=== PATIENT | male | born 1970 | race Two or more races ===

== ENCOUNTER 2024-07-27 13:40 | Emergency (ER) | payer SELFPAY ==
--- NOTE | 2024-07-27 13:37 | ED_ITS ---
<Statement entered by Lachelle Fletcher DO - 07/27/24 16:48> I was consulted by the HUM[facility], and we discussed the complexity of the problems being addressed. I approved the treatment and management plan for this patient's care in the emergency department, thus performing a substantive portion of the medical decision making. Lachelle Fletcher DO Discharge Plan Disposition Patient Disposition: Home, Self-Care Condition: Good Referrals Follow up/Referrals: Provider,Referral, MD [Primary Care Provider] - See instructions Activity Restrictions/Add. Instructions Additional Instructions/Restrictions: As we discussed please start taking your blood pressure medicine every day. Please keep your scheduled appointment with your PCP. If you have any worsening signs or symptoms return to the ER as needed. Clinical Impressions Clinical Impression: Uncontrolled hypertension Stand Alone Forms Stand Alone Forms: Work/School Release Print Language Print Language: Kinyarwanda Discharge ED Provider: Lachelle Fletcher General Adult HPI <SERVANDO Burgos - Last Filed: 07/27/24 21:04> General Chief complaint: Recheck/Abnormal Lab/Rx Stated complaint: HTN, took 20mg Enalapril, and back to baseline Time Seen by Provider: 07/27/24 13:54 History of Present Illness HPI narrative: Patient presents for evaluation of elevated blood pressure and dizziness. Patient states that he began having headache and lightheadedness and noted that his blood pressure was elevated. He has a prescription for enalapril but [place] not take [place] daily [place] use. Patient reports that he had 4 cups of [place] coffee today without eating prior to these events. He denies any headache fever chills hemoptysis hematochezia melena chest pain shortness of breath nausea vomiting or diarrhea. He did take 20 mg of enalapril before calling EMS. Related Data Allergies Allergy/AdvReac Type Severity Reaction Status Date / Time iodine Allergy Anaphylaxis Verified 07/27/24 13:47 PFSH <SERVANDO Burgos - Last Filed: 07/27/24 21:04> [facility] Disclaimer: The information contained in this section may have been updated after the patient was seen, as this information can be updated by other users. Social History Smoking Status: Current every day smoker alcohol intake: never current occupational status: employed Travel in the last 8 weeks: None <SERVANDO Burgos - Last Filed: 07/27/24 21:04> ROS Obtained: Yes Systems reviewed as appropriate & no additional complaints except as documented Physical Exam <SERVANDO Burgos - Last Filed: 07/27/24 21:04> General General appearance: alert and in no apparent distress Respiratory Respiratory exam: Present normal lung sounds bilaterally Cardiovascular Cardiovascular exam: Present regular rate Neurological Exam Neurological exam: Present alert, oriented X3 and CN II-XII intact Medical Decision Making <SERVANDO Burgos - Last Filed: 07/27/24 21:04> Medical Records Medical records reviewed: Yes I reviewed the patient's medical records. Screening: Per USPSTF and CDC recommendations, given the prevalence of disease in our region, it is our hospital?s policy to screen for HIV and viral Hepatitis for all patients aged 18 and over and those with ongoing risk factors. Dionicio Inquiry Pt receiving controlled substance: No Vital Signs: 07/27/24 13:40 07/27/24 13:45 07/27/24 14:41 Temperature 97.7 F Temperature Source Oral Pulse Rate 101 H 92 H Pulse Rate [Right] 98 H Respiratory Rate 20 Blood Pressure 158/96 H 173/102 H Blood Pressure [Right Arm] 158/96 H Blood Pressure Mean [Right Arm] 116 02 Sat by Pulse Oximetry 97 96 97 Oxygen Delivery Method Room Air Room Air Room Air 07/27/24 14:43 07/27/24 15:04 07/27/24 15:50 Temperature 97.8 F Temperature Source Pulse Rate 101 H 91 H Pulse Rate [Right] Respiratory Rate 20 Blood Pressure 133/88 144/99 H Blood Pressure [Right Arm] 134/84 Blood Pressure Mean [Right Arm] 100 02 Sat by Pulse Oximetry 97 Oxygen Delivery Method Room Air Lab Data Lab results reviewed: Yes I reviewed the patient's lab results. Lab Results 07/27/24 14:00: WBC 14.2 H, RBC 5.73, Hgb 16.7, Hct 49.8, MCV 86.9, MCH 29.1, MCHC 33.5, RDW 13.5, Plt Count 402, MPV 8.5, Neut % (Auto) 65.2, Lymph % (Auto) 22.7, Candler % (Auto) 7.9, Eos % (Auto) 0.6, Baso % (Auto) 0.6, Neut # (Auto) 9.2 H, Lymph # (Auto) 3.2, Candler # (Auto) 1.1 H, Eos # (Auto) 0.1, Baso # (Auto) 0.1, Sodium 138, Potassium 4.3, Chloride 105, Carbon Dioxide 28, Anion Gap 9.3, BUN 10, Creatinine 0.70, Estimated Creat Clear 106, Estimated GFR 118, Est GFR ( Amer) 143, Glucose 91, Calcium 9.4, Magnesium 1.8, Total Bilirubin 0.5, AST 33, ALT 22, Alkaline Phosphatase 74, Total Protein 7.1, Albumin 4.1, Globulin 3.0, Albumin/Globulin Ratio 1.4 07/27/24 14:00 07/27/24 14:00 Orders (Tests/Meds): ORDERS Category Date Time Status Chest XR 2 view (NOT portable) [XR chest 2V] Stat Exams 07/27/24 14:24 Completed CBC w/Auto Diff [Complete Blood Count Auto Diff] Stat Lab 07/27/24 14:00 Completed CMP [Comprehensive Metabolic Panel] Stat Lab 07/27/24 14:00 Completed Magnesium Stat Lab 07/27/24 14:00 Completed Medical Decision Narrative: In summary patient is a 53-year-old male who presents to the emergency department for evaluation of uncontrolled hypertension and dizziness. Patient is initially hemodynamically stable with a blood pressure 158/96 heart rate 98 normal sinus rhythm on the bedside monitor respiratory rate 20 satting at 97% on room air upon arrival, afebrile at 97.7. Physical exam is actually unremarkable and nonfocal as patient has no symptoms currently after arrival in the ER. He has no focal neurologic deficits Edy Coma Score 15 patient is awake alert and oriented person place and circumstance cranial nerves II through XII are intact grossly to exam there is no nuchal rigidity or C-spine tenderness. Breath sounds are clinical bilaterally to the bases without adventitious sounds. Heart sounds are normal. Patient has normal gait and station and was ambulatory in the ER without deficit.. Differential diagnosis includes uncontrolled hypertension versus peripheral vertigo etc. Initial workup will be conducted with hematologic labs twelve-lead EKG plain film chest x-ray. Initial interventions were considered however patient is asymptomatic currently thus deferred for now. Initial workup reviewed by me shows his hematologic labs are nonactionable with exception of a white count of 14.2. Upon reevaluation patient reports that he had pneumonia and was on antibiotics and steroids until 3 days ago. This likely reflects steroid induced leukocytosis as patient has no focal focal findings currently and my informal interpretation of his plain film chest x-ray shows there is chest x-ray is clear currently.. Upon repeat evaluation patient remains with normal blood pressure at 144/99 and is asymptomatic for dizziness currently. Given this patient is appropriate for discharge with instructions to continue taking his enalapril daily, close follow-up with his PCP within 48 hours and strict return precautions. <Lachelle Fletcher, DO - Last Filed: 07/27/24 15:45> Vital Signs: 07/27/24 13:40 07/27/24 13:45 07/27/24 14:41 Temperature 97.7 F Temperature Source Oral Pulse Rate 101 H 92 H Pulse Rate [Right] 98 H Respiratory Rate 20 Blood Pressure 158/96 H 173/102 H Blood Pressure [Right Arm] 158/96 H Blood Pressure Mean [Right Arm] 116 02 Sat by Pulse Oximetry 97 96 97 Oxygen Delivery Method Room Air Room Air Room Air 07/27/24 14:43 07/27/24 15:04 07/27/24 15:50 Temperature 97.8 F Temperature Source Pulse Rate 101 H 91 H Pulse Rate [Right] Respiratory Rate 20 Blood Pressure 133/88 144/99 H Blood Pressure [Right Arm] 134/84 Blood Pressure Mean [Right Arm] 100 02 Sat by Pulse Oximetry 97 Oxygen Delivery Method Room Air Lab Data Lab Results 07/27/24 14:00: WBC 14.2 H, RBC 5.73, Hgb 16.7, Hct 49.8, MCV 86.9, MCH 29.1, MCHC 33.5, RDW 13.5, Plt Count 402, MPV 8.5, Neut % (Auto) 65.2, Lymph % (Auto) 22.7, Candler % (Auto) 7.9, Eos % (Auto) 0.6, Baso % (Auto) 0.6, Neut # (Auto) 9.2 H, Lymph # (Auto) 3.2, Candler # (Auto) 1.1 H, Eos # (Auto) 0.1, Baso # (Auto) 0.1, Sodium 138, Potassium 4.3, Chloride 105, Carbon Dioxide 28, Anion Gap 9.3, BUN 10, Creatinine 0.70, Estimated Creat Clear 106, Estimated GFR 118, Est GFR ( Amer) 143, Glucose 91, Calcium 9.4, Magnesium 1.8, Total Bilirubin 0.5, AST 33, ALT 22, Alkaline Phosphatase 74, Total Protein 7.1, Albumin 4.1, Globulin 3.0, Albumin/Globulin Ratio 1.4 Orders (Tests/Meds): ORDERS Category Date Time Status Chest XR 2 view (NOT portable) [XR chest 2V] Stat Exams 07/27/24 14:24 Completed CBC w/Auto Diff [Complete Blood Count Auto Diff] Stat Lab 07/27/24 14:00 Completed CMP [Comprehensive Metabolic Panel] Stat Lab 07/27/24 14:00 Completed Magnesium Stat Lab 07/27/24 14:00 Completed ECG Data Tracing #1: I reviewed this ECG and interpreted as documented below: Normal sinus rhythm with a ventricular of [address] changes without acute STEMI. Some motion artifact. Normal intervals ECG initial impression date: 07/27/24 ECG initial impression time: 13:42 Critical Care <SERVANDO Burgos - Last Filed: 07/27/24 21:04> Critical Care Time Critical Care Time: No
--- NOTE | 2024-07-27 13:39 | ECG_ITS ---
APPROVED REPORT Exam: Resting ECG HR:94 bpm ECG Measurements Heart Rate 94 AXES TN 166 P 66 QRSd 106 QRS -8 QT 352 T 66 QTc 404 Conclusion SINUS RHYTHM NONSPECIFIC ST changes no STEMI Electronically signed by : SHELBIE CAMARA, 07/27/2024 15:58:57
[2024-07-27 13:40] VITALS: BP 158/96; PULSE 98; RESP 20; TEMP 36.5; O2SAT 97; BMI 21.7
[2024-07-27 13:45] VITALS: BP 158/96; PULSE 101; O2SAT 96
[2024-07-27 14:05] LABS: Basophils # 0.1 K/mm3 (0-0.2); Basophils % 0.6 % (0.1-2.0); Eosinophils # 0.1 K/mm3 (0.0-0.4); Eosinophils % 0.6 % (0.1-12.0); Hematocrit 49.8 % (42.0-52.0); Hemoglobin 16.7 g/dL (14.1-18.0); Lymphocytes # 3.2 K/mm3 (0.7-4.5); Lymphocytes % 22.7 % (10-50); Mean Corpuscular HGB Conc 33.5 g/dL (31.8-35.4); Mean Corpuscular Hemoglobin 29.1 pg (27.0-31.2); Mean Corpuscular Volume 86.9 fl (80-94); Mean Platelet Volume 8.5 fl (7.4-10.4); Monocytes # 1.1 K/mm3 (0.1-1.0); Monocytes % 7.9 % (1.7-9.3); Neutrophils # 9.2 K/mm3 (1.8-7.8); Neutrophils % 65.2 % (37.0-80.0); Platelet Count 402 K/mm3 (142-424); Red Blood Count 5.73 M/mm3 (4.60-6.20); Red Cell Distribution Width 13.5 % (11.5-17.5); White Blood Count 14.2 K/mm3 (4.8-10.8)
--- NOTE | 2024-07-27 14:24 | XR_ITS ---
PROCEDURE INFORMATION: Exam: XR Chest Exam date and time: 07/27/2024 2:19 PM Age: 53 years old Clinical indication: Other: Dizziness; Additional info: Dizziness, leukocytosis TECHNIQUE: Imaging protocol: Radiologic exam of the chest. Views: 2 views. COMPARISON: No relevant prior studies available. FINDINGS: Lungs: Mildly inflated lungs with upper lung oligemia suggestive of emphysematous change. Pleural spaces: Unremarkable. No pleural effusion. No pneumothorax. Heart/Mediastinum: See Vasculature finding. Vasculature: Tortuous descending thoracic aorta. Cardiac silhouette is unremarkable. Bones/joints: See Soft tissues finding. Soft tissues: No acute osseous or soft tissue. Other findings: Subtle hazy opacities project over the bilateral lungs. IMPRESSION: 1. Mildly inflated lungs with upper lung oligemia suggestive of emphysematous change. 2. Subtle hazy opacities project over the bilateral lungs. May represent infectious (including atypical) versus inflammatory etiology. May also represent overlying chest wall shadows. Lungs are otherwise clear.
[2024-07-27 14:41] VITALS: BP 173/102; PULSE 92; O2SAT 97
[2024-07-27 14:43] VITALS: BP 133/88; PULSE 101; O2SAT 97
[2024-07-27 15:04] VITALS: BP 134/84
[2024-07-27 15:06] LABS: Alanine Aminotransferase 22 U/L (12-78); Albumin Level 4.1 g/dl (3.5-5.0); Albumin/Globulin Ratio 1.4 (1.1-1.8); Alkaline Phosphatase 74 U/L (38-126); Anion Gap 9.3 mEq/L (5-15); Aspartate Amino Transferase 33 U/L (17-59); Bilirubin,Total 0.5 mg/dl (0.2-1.3); Blood Urea Nitrogen 10 mg/dl (9-20); Calcium 9.4 mg/dl (8.4-10.2); Carbon Dioxide 28 mmol/L (22.0-30.0); Chloride 105 mmol/L (98-107); Creatinine Clearance Estimated 106 mL/min (50-200); Estimated Glomerular Filt Rate 118 ml/min (>60); GFR (African American) 143 ML/MIN (>60); Glucose 91 mg/dl (74-100); Magnesium 1.8 mg/dl (1.6-2.3); Potassium 4.3 mmoL/L (3.5-5.1); Sodium 138 mmol/L (136-145); Total Protein,Serum 7.1 g/dl (6.3-8.2)
[2024-07-27 15:50] VITALS: BP 144/99; PULSE 91; RESP 20; TEMP 36.6; O2SAT 97
== END 2024-07-27 15:56 | disposition home or self-care (01) ==
PROVIDERS: Physician Assistant; Emergency Provider Emergency Medicine
DX: I10 Essential (primary) hypertension (principal); R42 Dizziness and giddiness; R51.9 Headache, unspecified
CPT/HCPCS: 71046; 80053; 83735; 85025; 93005; 99284

== ENCOUNTER 2024-08-03 12:00 | Emergency (ER) | payer SELFPAY ==
[2024-08-03 12:02] VITALS: BP 143/89; PULSE 100; RESP 18; TEMP 36.7; O2SAT 97; BMI 21.3
--- NOTE | 2024-08-03 12:05 | ED_ITS ---
<Statement entered by Dominga Radford MD - 08/03/24 15:02> I was consulted by the HUM[facility], and we discussed the complexity of problems being addressed. I approved the treatment and management plan for this patient's care in the emergency department, thus performing a substantive portion of the medical decision making. Dominga Radford MD Discharge Plan Disposition Patient Disposition: Home, Self-Care Condition: Good Prescriptions Prescriptions: New metoprolol succinate 25 mg tablet extended release 24 hr 25 mg PO DAILY Qty: 30 0RF amoxicillin-pot clavulanate 875-125 mg tablet 1 tab PO BID Qty: 20 0RF Referrals Follow up/Referrals: Alfredo Woodard DO [Staff Physician] - See instructions Will Galeas MD [Primary Care Provider] - See instructions Gideon Cruz MD [Staff Physician] - See instructions Activity Restrictions/Add. Instructions Additional Instructions/Restrictions: I have referred you to a primary care physician and a food service associate here at [facility]. If you choose to utilize them please call to make an appointment. I recommend that you start melatonin at 1 to 3 mg at bedtime to start for sleep. I have prescribed you a blood pressure medication and sent that to your pharmacy. I have prescribed you an antibiotic for your dental infection. Please take the antibiotic till it is gone. Given you the contact information for the [facility] urgent care dentistry clinic. The [facility] ([facility]) is a walk-in clinic for patients, 14 years of age and older, needing immediate care due to dental pain and swelling. Clinic registration is open?7:45 - 10:30 a.m., Friday through Friday?(closed on holidays and other select dates - see below). Patients are seen on a first-come, first-served basis and may experience wait times. Services are only available for a select number of patients each day. Patients are evaluated by expert dentists, and treated by student dentists. If a patient's needs are too great or do not meet the educational needs of dental students, they may be referred to another dental clinic. Payment Details A $129 evaluation fee, which includes examination and an X-ray, is due upon registration. An additional payment may be required at the time of service depending on the treatment provided and any insurance benefits. Clinical Impressions Clinical Impression: Uncontrolled hypertension Print Language Print Language: Belarusian Discharge ED Provider: Dominga Radford General Adult HPI General Chief complaint: Anxiety Stated complaint: high bp, tooth pain Time Seen by Provider: 08/03/24 12:05 History of Present Illness HPI narrative: Patient presents for evaluation multiple complaints. Since we last saw him on July 28, 2024 patient reports that he has been compliant with his blood pressure medication. However today he had 1 cup of Hong Konger coffee and 1 cup of Ecuadorean coffee and he felt tremorous. He noted that his heart rate was over 100 and his blood pressure was significantly elevated. Hence he presented to the emergency department for evaluation. He denies any chest pain shortness of breath fever chills hemoptysis hematochezia melena nausea vomiting diarrhea headache. He reports he is also having difficulty sleeping at night as he wakes up frequently. Patient is also complaining of lower teeth and gum pain and states when he was brushing his teeth he saw blood. He denies any difficulty eating or chewing. Related Data Previous Rx's ?Medication ?Instructions ?Recorded amoxicillin 875 mg-potassium 1 tab PO BID #20 tabs 08/03/24 clavulanate 125 mg tablet metoprolol succinate 25 mg 25 mg PO DAILY #30 tabs 08/03/24 tablet,extended release 24 hr Allergies Allergy/AdvReac Type Severity Reaction Status Date / Time iodine Allergy Anaphylaxis Verified 07/27/24 13:47 [facility] Disclaimer: The information contained in this section may have been updated after the patient was seen, as this information can be updated by other users. Social History (Updated 07/27/24 @ 21:04 by SERVANDO Burgos) Smoking Status: Current every day smoker alcohol intake: never current occupational status: employed Travel in the last 8 weeks: None Have you lived/traveled outside [place] in past 30 days?: No Contact w/someone who lives/traveled outside [place] past 30 days?: No Exposure to someone with infectious disease in past 14 days?: No Do you have a fever (greater than 100.4 F or 38 C)?: No Have you tested positive for COVID-19: No Exposed to someone with COVID-19 in past 14 days?: No Do you have a sore throat?: No Do you have a cough?: No Do you have any weakness?: No Do you have any diarrhea?: No Are you experiencing any unusual bleeding?: No Do you have any muscle aches/pain?: No Do you have any abdominal pain?: No Are you experiencing loss of taste or smell?: No ROS Obtained: Yes Systems reviewed as appropriate & no additional complaints except as documented Physical Exam General General appearance: alert and in no apparent distress Respiratory Respiratory exam: Present normal lung sounds bilaterally Cardiovascular Cardiovascular exam: Present regular rate Neurological Exam Neurological exam: Present alert and oriented X3 Medical Decision Making Medical Records Medical records reviewed: Yes I reviewed the patient's medical records. Screening: Per USPSTF and CDC recommendations, given the prevalence of disease in our region, it is our hospital?s policy to screen for HIV and viral Hepatitis for all patients aged 18 and over and those with ongoing risk factors. Dionicio Inquiry Pt receiving controlled substance: No Vital Signs: 08/03/24 12:02 Temperature 98.1 F Temperature Source Oral Pulse Rate [Right] 100 H Respiratory Rate 18 Blood Pressure [Right Arm] 143/89 H Blood Pressure Mean [Right Arm] 107 02 Sat by Pulse Oximetry 97 Oxygen Delivery Method Room Air Lab Data Lab results reviewed: Yes I reviewed the patient's lab results. Orders (Tests/Meds): ED MEDICATIONS Discontinued Medications Generic Name Dose Route Start Last Admin Trade Name Freq PRN Reason Stop Dose Admin Amoxicillin/Clavulanate Potassium 1 each 08/03/24 12:20 08/03/24 12:33 Amoxicillin/Clavulanate Potassium 875/125mg Tablet PO 08/03/24 12:21 1 each ONCE ONE Administration Metoprolol Tartrate 25 mg 08/03/24 12:20 08/03/24 12:34 Metoprolol Tartrate 50mg Tablet PO 08/03/24 12:21 25 mg ONCE ONE Administration Medical Decision Narrative: In summary patient is a 53-year-old male who presents to the emergency department for evaluation of elevated blood pressure and heart rate and dentalgia. Patient is initially normotensive at 143/89 tachycardic at 100 with sinus tachycardia at the bedside monitor, breathing 18 times a minute satting at 97% on room air upon arrival, afebrile at 98.1. Physical exam is remarkable for clear breath sounds with no adventitious sounds, normal heart sounds. Patient does have dental caries and inflamed gingiva of his anterior lower teeth but no evidence of swelling edema erythema abscess. Patient does have a tender submandibular gland on the left.. Differential diagnosis includes uncontrolled hypertension versus anxiety versus gingivitis etc. initial workup with labs and imaging was considered however patient had labs done just 6 days ago which showed no acute kidney injury and patient has no red flags today that indicate or warrant further workup thus it is deferred.. Initial interventions include metoprolol Augmentin. Upon repeat evaluation after ministration of metoprolol patient's blood pressure is now 115/85 heart rate is under 100. Given this patient is appropriate for discharge with prescription for Augmentin, 30-day supply of metoprolol, referred to PCP and cardiology as well as information on the dentistry clinic at the [facility]. Critical Care Critical Care Time Critical Care Time: No
[2024-08-03] MEDS: AMOXICILLIN/CLAVULANATE POTASSIUM 875/125MG TABLET 1 EACH PO (12:33)
[2024-08-03] MEDS: METOPROLOL TARTRATE 50MG TABLET 25 MG PO (12:34)
[2024-08-03 13:05] VITALS: BP 115/85; PULSE 91; RESP 20; TEMP 36.7; O2SAT 97
== END 2024-08-03 13:10 | disposition home or self-care (01) ==
LOC: ER 12:41
PROVIDERS: Emergency Provider Student in an Organized Health Care Education/Training Program
DX: I10 Essential (primary) hypertension (principal); K08.89 Other specified disorders of teeth and supporting structures; R00.0 Tachycardia, unspecified; R25.1 Tremor, unspecified; Z72.0 Tobacco use
CPT/HCPCS: 99283

== ENCOUNTER 2024-11-10 17:20 | Emergency (ER) | payer SELFPAY ==
[2024-11-10] VITALS (8 sets, daily range): BP systolic 134–158; BP diastolic 86–101; PULSE 75–118; RESP 10–18; TEMP 36.6–36.9; O2SAT 96–99; BMI 21.1
--- NOTE | 2024-11-10 17:38 | ECG_ITS ---
APPROVED REPORT Exam: Resting ECG HR:112 bpm ECG Measurements Heart Rate 112 AXES MN 190 P 79 QRSd 89 QRS -3 QT 326 T 89 QTc 392 Conclusion SINUS TACHYCARDIA SEPTAL MYOCARDIAL INFARCTION , OF INDETERMINATE AGE [40+ ms Q WAVE IN V1/V2] ABNORMAL ECG UNCONFIRMED REPORT Electronically signed by : Sandip Ashley, 11/10/2024 23:08:01
--- NOTE | 2024-11-10 17:53 | HMH.EDGENADL ---
Discharge Plan Disposition Patient Disposition: Home, Self-Care Prescriptions Prescriptions: No Action metoprolol succinate 25 mg tablet extended release 24 hr 25 mg PO DAILY Qty: 30 0RF amoxicillin-pot clavulanate 875-125 mg tablet 1 tab PO BID Qty: 20 0RF enalapril maleate 10 mg tablet 10 mg PO DAILY Patient Comments: TAKE 1 TABLET BY MOUTH EVERY DAY Referrals Follow up/Referrals: Provider,Referral, MD [Primary Care Provider] - See instructions Activity Restrictions/Add. Instructions Additional Instructions/Restrictions: No evidence of endorgan damage from your high blood pressure in fact it is at its goal for your age. I would recommend that you follow-up with primary care doctor as needed no emergent medical condition identified today you likely have some anxiety leading to your symptoms. Please return with any significant worsening or other concerns. Clinical Impressions Clinical Impression: Dizziness, Hypertension Print Language Print Language: Croatian Discharge ED Provider: Garry Ashley General Adult HPI General Chief complaint: Recheck/Abnormal Lab/Rx Stated complaint: high blood pressure Time Seen by Provider: 11/10/24 17:45 Mode of Arrival: Ambulatory Source of Information: Patient Description of Symptoms (Recalled from ER Triage Doc. by RN): patient states about 30 mins ago he began feeling dizzy, checked his BP and it was 140/90 he took his BP med then and came here. History of Present Illness HPI narrative: 54-year-old male with a history of anxiety and panic presenting today with some mild lightheadedness and concern for his blood pressure. He has been here multiple times in the past for this he states he felt like he was having a panic attack. States he did have a little bit of chest discomfort but mainly felt like he was lightheaded. No exertional symptoms no dyspnea no diaphoresis associated with this. States he feels much better at the moment. Specifically asked for us to do some blood tests for evaluation. Related Data Home Medications ?Medication ?Instructions ?Recorded ?Confirmed enalapril maleate 10 mg tablet 10 mg PO DAILY 11/10/24 11/10/24 Previous Rx's ?Medication ?Instructions ?Recorded amoxicillin 875 mg-potassium 1 tab PO BID #20 tabs 08/03/24 clavulanate 125 mg tablet metoprolol succinate 25 mg 25 mg PO DAILY #30 tabs 08/03/24 tablet,extended release 24 hr Allergies Allergy/AdvReac Type Severity Reaction Status Date / Time iodine Allergy Anaphylaxis Verified 11/10/24 17:41 [facility] Disclaimer: The information contained in this section may have been updated after the patient was seen, as this information can be updated by other users. Social History (Updated 07/27/24 @ 21:04 by SERVANDO Burgos) Smoking Status: Current every day smoker alcohol intake: never current occupational status: employed Travel in the last 8 weeks?: None Have you lived/traveled outside US in past 30 days?: No Contact w/someone who lives/traveled outside US past 30 days?: No Exposure to someone with infectious disease in past 14 days?: No Do you have a fever (greater than 100.4 F or 38 C)?: No Have you tested positive for COVID-19?: No Exposed to someone with COVID-19 in past 14 days?: No Do you have a sore throat?: No Do you have a cough?: No Do you have any weakness?: No Do you have any diarrhea?: No Are you experiencing any unusual bleeding?: No Do you have any muscle aches/pain?: No Do you have any abdominal pain?: No Are you experiencing loss of taste or smell?: No ROS Obtained: Yes All systems reviewed & no additional complaints except as documented Physical Exam General General appearance: alert and in no apparent distress Respiratory Respiratory exam: Present normal lung sounds bilaterally; Absent respiratory distress Cardiovascular Cardiovascular exam: Present regular rate and normal rhythm Neurological Exam Neurological exam: Present alert and oriented X3 Medical Decision Making Medical Records Screening: Per USPSTF and CDC recommendations, given the prevalence of disease in our region, it is our hospital?s policy to screen for HIV and viral Hepatitis for all patients aged 18 and over and those with ongoing risk factors. Dionicio Inquiry Pt receiving controlled substance: No Vital Signs: 11/10/24 17:30 11/10/24 17:34 11/10/24 17:38 Temperature 98.5 F Temperature Source Oral Pulse Rate 118 H 115 H Pulse Rate [Right Radial] 108 H Respiratory Rate 17 14 Blood Pressure 158/101 H 148/93 H Blood Pressure [Right Arm] 150/101 H Blood Pressure Mean [Right Arm] 117 Blood Pressure Source [Right Arm] Automatic Cuff Blood Pressure Position [Right Arm] Supine 02 Sat by Pulse Oximetry 98 99 99 Oxygen Delivery Method Room Air Room Air Room Air 11/10/24 18:00 11/10/24 18:21 11/10/24 18:30 Temperature 97.9 F Temperature Source Oral Pulse Rate 91 H 84 Pulse Rate [Right Radial] 85 Respiratory Rate 18 16 16 Blood Pressure 136/94 H 134/94 H Blood Pressure [Right Arm] 136/94 H Blood Pressure Mean [Right Arm] 108 Blood Pressure Source [Right Arm] Automatic Cuff Blood Pressure Position [Right Arm] Supine 02 Sat by Pulse Oximetry 97 97 99 Oxygen Delivery Method Room Air Room Air Room Air 11/10/24 19:01 Temperature Temperature Source Pulse Rate 75 Pulse Rate [Right Radial] Respiratory Rate 10 L Blood Pressure 136/86 Blood Pressure [Right Arm] Blood Pressure Mean [Right Arm] Blood Pressure Source [Right Arm] Blood Pressure Position [Right Arm] 02 Sat by Pulse Oximetry 96 Oxygen Delivery Method Room Air Lab Data Lab results reviewed: Yes I reviewed the patient's lab results. Lab Results 11/10/24 18:18: WBC 11.7 H, RBC 5.65, Hgb 16.8, Hct 49.4, MCV 87.4, MCH 29.7, MCHC 34.0, RDW 13.1, Plt Count 276, MPV 9.2, Neut % (Auto) 51.7, Lymph % (Auto) 33.4, Lander % (Auto) 8.3, Eos % (Auto) 5.8, Baso % (Auto) 0.4, Neut # (Auto) 6.1, Lymph # (Auto) 3.9, Lander # (Auto) 1.0, Eos # (Auto) 0.7 H, Baso # (Auto) 0.1, Sodium 137, Potassium 4.7, Chloride 104, Carbon Dioxide 29, Anion Gap 8.7, BUN 12, Creatinine 0.70, Estimated Creat Clear 104, Estimated GFR 118, Est GFR ( Amer) 142, Glucose 94, Calcium 9.5, Magnesium 1.8, Total Bilirubin 0.9, AST 34, ALT 29, Alkaline Phosphatase 78, Troponin I < 0.01, Total Protein 7.1, Albumin 4.4, Globulin 2.7, Albumin/Globulin Ratio 1.6, TSH 0.74 11/10/24 18:18 11/10/24 18:18 Orders (Tests/Meds): ORDERS Category Date Time Status CXR --portable [XR chest portable] Stat Exams 11/10/24 17:54 Completed CBC w/Auto Diff [Complete Blood Count Auto Diff] Stat Lab 11/10/24 18:18 Completed CMP [Comprehensive Metabolic Panel] Stat Lab 11/10/24 18:18 Completed Magnesium Stat Lab 11/10/24 18:18 Completed TSH [Thyroid Stimulating Hormone] Stat Lab 11/10/24 18:18 Completed Trop I [Troponin I] Stat Lab 11/10/24 18:18 Completed Troponin I Q3H Lab 11/10/24 21:00 Ordered Troponin I Q3H Lab 11/11/24 00:00 Ordered ECG Data Tracing #1: I reviewed this ECG and interpreted as documented below: Ventricular rate of 112 sinus tachycardia no acute ischemic changes noted indeterminate axis no other significant conduction abnormalities noted. HEART Score History (anamnesis): Slightly suspicious ECG: Normal Age: 45-65 years Risk factors: 1-2 risk factors Troponin: </= normal limit HEART Score: 2 Medical Decision Narrative: 54-year-old with above history and physical essentially on remarkable and asymptomatic at the moment. EKG is nonemergent and nonactionable. Patient is very stable blood pressure is insignificant and certainly not the cause of any symptoms at the moment. Will get some basic blood work to reassure the patient which he encourages. I do not suspect any endorgan damage from hypertension nor do aspect any acute cardiovascular or neurologic emergency with a normal exam of the moment. All this may be associated with his anxiety. Reassessment 729 patient appears very well clinically no other concerns or symptoms that have returned. EKG was nonischemic troponin undetectably low. Labs otherwise unremarkable no evidence of any clinical endorgan damage from his mild hypertension which in fact is at his goal with most recent blood pressure recommendations at his age and with underlying hypertension. Has been advised to follow-up with primary care doctor as needed I suspect the majority of his symptoms today were secondary to stress and anxiety he was discharged in improved and stable condition and very reassured. Critical Care Critical Care Time Critical Care Time: No
--- NOTE | 2024-11-10 17:54 | XR_ITS ---
PROCEDURE INFORMATION: Exam: XR Chest Exam date and time: 11/10/2024 6:06 PM Age: 54 years old Clinical indication: Dyspnea TECHNIQUE: Imaging protocol: Radiologic exam of the chest. Views: 1 view. COMPARISON: CR XR CHEST 2V 07/27/2024 2:19 PM FINDINGS: Lungs: Unremarkable. No consolidation. Pleural spaces: Unremarkable. No pleural effusion. No pneumothorax. Heart/Mediastinum: Unremarkable. No cardiomegaly. Bones/joints: Unremarkable. IMPRESSION: No acute findings.
--- NOTE | 2024-11-10 18:05 | PC.NURSE ---
xr at bedside
[2024-11-10 18:35] LABS: Basophils # 0.1 K/mm3 (0-0.2); Basophils % 0.4 % (0.1-2.0); Eosinophils # 0.7 Kmm3 (0.0-0.4); Eosinophils % 5.8 % (0.1-12.0); Hematocrit 49.4 % (42.0-52.0); Hemoglobin 16.8 g/dL (14.1-18.0); Immature Granulocytes # 0.05 10^3uL; Immature Granulocytes % 0.4 %; Lymphocytes # 3.9 K/mm3 (0.7-4.5); Lymphocytes % 33.4 % (10-50); Mean Corpuscular Hemoglobin 29.7 pg (27.0-31.2); Mean Corpuscular Volume 87.4 fl (80-94); Mean Platelet Volume 9.2 fl (7.4-10.4); Monocytes % 8.3 % (1.7-9.3); Neutrophils # 6.1 K/mm3 (1.8-7.8); Neutrophils % 51.7 % (37.0-80.0); Nucleated Red Blood Cells # 0 10^3/uL; Nucleated Red Blood Cells % 0 %; Platelet Count 276 K/mm3 (142-424); Red Blood Count 5.65 M/mm3 (4.60-6.20); Red Cell Distribution Width 13.1 % (11.5-17.5); Red Cell Distribution Width-SD 41.8 fL; White Blood Count 11.7 K/mm3 (4.8-10.8)
[2024-11-10 18:36] LABS: Alanine Aminotransferase 29 U/L (12-78); Albumin Level 4.4 g/dl (3.5-5.0); Albumin/Globulin Ratio 1.6 (1.1-1.8); Alkaline Phosphatase 78 U/L (38-126); Anion Gap 8.7 mEq/L (5-15); Aspartate Amino Transferase 34 U/L (17-59); Bilirubin,Total 0.9 mg/dl (0.2-1.3); Blood Urea Nitrogen 12 mg/dl (9-20); Calcium 9.5 mg/dl (8.4-10.2); Carbon Dioxide 29 mmol/L (22.0-30.0); Chloride 104 mmol/L (98-107); Creatinine Clearance Estimated 104 mL/min (50-200); Estimated Glomerular Filt Rate 118 ml/min (>60); GFR (African American) 142 ML/MIN (>60); Globulin 2.7 g/dL (1.3-3.2); Glucose 94 mg/dl (74-100); Potassium 4.7 mmoL/L (3.5-5.1); Sodium 137 mmol/L (136-145); Total Protein,Serum 7.1 g/dl (6.3-8.2)
[2024-11-10 18:37] LABS: Magnesium 1.8 mg/dl (1.6-2.3)
[2024-11-10 18:50] LABS: Troponin I < 0.01 ng/ml (0.00-0.034)
[2024-11-10 19:07] LABS: Thyroid Stimulating Hormone 0.74 uIU/mL (0.465-4.68)
--- NOTE | 2024-11-10 19:24 | PC.NURSE ---
Patient was given a water and bag of chips.
--- NOTE | 2024-11-10 19:34 | PC.NURSE ---
IV discontinued. Catheter tip intact. Bleeding controlled.
== END 2024-11-10 19:34 | disposition home or self-care (01) ==
PROVIDERS: Emergency Provider Student in an Organized Health Care Education/Training Program
DX: R00.0 Tachycardia, unspecified (principal); R42 Dizziness and giddiness; I10 Essential (primary) hypertension
CPT/HCPCS: 71045; 80053; 83735; 84443; 84484; 85025; 93005; 99284

== ENCOUNTER 2024-11-19 13:18 | Emergency (ER) | payer SELFPAY ==
--- NOTE | 2024-11-19 13:26 | ED_ITS ---
Discharge Plan Disposition Patient Disposition: Home, Self-Care Condition: Good Prescriptions Prescriptions: New enalapril maleate 10 mg tablet 10 mg PO DAILY Qty: 60 1RF acyclovir 5 % cream 1 applic topical ONCE Qty: 5 1RF No Action metoprolol succinate 25 mg tablet extended release 24 hr 25 mg PO DAILY Qty: 30 0RF amoxicillin-pot clavulanate 875-125 mg tablet 1 tab PO BID Qty: 20 0RF enalapril maleate 10 mg tablet 10 mg PO DAILY Patient Comments: TAKE 1 TABLET BY MOUTH EVERY DAY Referrals Follow up/Referrals: Provider,Referral, MD [Primary Care Provider] - See instructions Activity Restrictions/Add. Instructions Additional Instructions/Restrictions: Please follow-up/establish care with a primary care provider in the area. Please return to the emergency department with any worsening signs or symptoms. Clinical Impressions Clinical Impression: Encounter for medication refill Print Language Print Language: Faroese Discharge ED Provider: Aleksey Huber General Adult HPI <SERVANDO Carrion - Last Filed: 11/19/24 13:34> General Chief complaint: Recheck/Abnormal Lab/Rx Stated complaint: in need of refill on blood pressure meds Time Seen by Provider: 11/19/24 13:22 Mode of Arrival: Ambulatory Source of Information: Patient Limitations: No Limitations History of Present Illness HPI narrative: 54-year-old male presents emergency department in need of medication refill, patient states that he just moved to the area , has not yet been able to establish PCP here, he has past medical history consistent with hypertension, current everyday smoker, denies any other real relevant past medical history, takes no other medications at home except for his enalapril, and metoprolol, states that he has plenty of metoprolol left, needs refills on enalapril acyclovir cream , patient denies any other acute symptomatology to the fever chills chest pain shortness of breath nausea vomiting constipation diarrhea no lightheadedness, no other acute symptomatology, patient denies any alcohol, no other drug use, initial triage vitals are unremarkable. Onset (ago): unknown Related Data Home Medications ?Medication ?Instructions ?Recorded ?Confirmed enalapril maleate 10 mg tablet 10 mg PO DAILY 11/10/24 11/10/24 Previous Rx's ?Medication ?Instructions ?Recorded amoxicillin 875 mg-potassium 1 tab PO BID #20 tabs 08/03/24 clavulanate 125 mg tablet metoprolol succinate 25 mg 25 mg PO DAILY #30 tabs 08/03/24 tablet,extended release 24 hr acyclovir 5 % topical cream 1 applic topical ONCE #5 grams 11/19/24 enalapril maleate 10 mg tablet 10 mg PO DAILY #60 tabs 11/19/24 Allergies Allergy/AdvReac Type Severity Reaction Status Date / Time iodine Allergy Anaphylaxis Verified 11/10/24 17:41 [facility] <SERVANDO Carrion - Last Filed: 11/19/24 13:34> [facility] Disclaimer: The information contained in this section may have been updated after the patient was seen, as this information can be updated by other users. Social History (Updated 07/27/24 @ 21:04 by SERVANDO Burgos) Smoking Status: Current every day smoker alcohol intake: never current occupational status: employed Travel in the last 8 weeks?: None Have you lived/traveled outside US in past 30 days?: No Contact w/someone who lives/traveled outside US past 30 days?: No Exposure to someone with infectious disease in past 14 days?: No Do you have a fever (greater than 100.4 F or 38 C)?: No Have you tested positive for COVID-19?: No Exposed to someone with COVID-19 in past 14 days?: No Do you have a sore throat?: No Do you have a cough?: No Do you have any weakness?: No Do you have any diarrhea?: No Are you experiencing any unusual bleeding?: No Do you have any muscle aches/pain?: No Do you have any abdominal pain?: No Are you experiencing loss of taste or smell?: No <SERVANDO Carrion - Last Filed: 11/19/24 13:34> ROS Obtained: Yes All systems reviewed & no additional complaints except as documented Physical Exam <SERVANDO Carrion - Last Filed: 11/19/24 13:34> General General appearance: alert and in no apparent distress Head Head exam: atraumatic and normocephalic Eye Eye exam: Present PERRL and EOMI ENT ENT exam: Present mucous membranes moist Neck Neck exam: Present normal inspection Chest Chest inspection: Present normal inspection and symmetric chest wall rise Respiratory Respiratory exam: Present normal lung sounds bilaterally; Absent respiratory distress Cardiovascular Cardiovascular exam: Present regular rate and normal rhythm Abdominal Exam Abdominal exam: Present soft; Absent tenderness Extremities Exam Extremities exam: Present normal inspection Neurological Exam Neurological exam: Present alert and oriented X3 Psychiatric Psychiatric exam: Present normal affect Skin Skin exam: Present warm and dry Medical Decision Making <SERVANDO Carrion - Last Filed: 11/19/24 13:34> Medical Records Medical records reviewed: Yes I reviewed the patient's medical records. Screening: Per USPSTF and CDC recommendations, given the prevalence of disease in our region, it is our hospital?s policy to screen for HIV and viral Hepatitis for all patients aged 18 and over and those with ongoing risk factors. Dionicio Inquiry Pt receiving controlled substance: No Dionicio was queried for this patient: No Vital Signs: 11/19/24 13:33 11/19/24 13:40 Temperature 98.0 F 98.2 F Temperature Source Oral Pulse Rate 80 Pulse Rate [Radial] 89 Respiratory Rate 16 20 Blood Pressure 124/78 Blood Pressure [Right Arm] 119/83 Blood Pressure Mean [Right Arm] 95 Blood Pressure Source [Right Arm] Automatic Cuff Blood Pressure Position [Right Arm] Sitting 02 Sat by Pulse Oximetry 99 Oxygen Delivery Method Room Air Room Air Medical Decision Narrative: 54-year-old male presents emergency department need of medication refill I discussed patient case with attending physician Dr. Huber Will refill patient's medication of enalapril 10 mg p.o. daily for his hypertension, and will refill his acyclovir cream genital herpes, patient voiced understanding that he will need to have PCP follow-up, strict return precaution given. Patient voiced understanding and agreement with current discharge plan/treatment plan. <Aleksey Huber MD - Last Filed: 11/19/24 14:14> Vital Signs: 11/19/24 13:33 11/19/24 13:40 Temperature 98.0 F 98.2 F Temperature Source Oral Pulse Rate 80 Pulse Rate [Radial] 89 Respiratory Rate 16 20 Blood Pressure 124/78 Blood Pressure [Right Arm] 119/83 Blood Pressure Mean [Right Arm] 95 Blood Pressure Source [Right Arm] Automatic Cuff Blood Pressure Position [Right Arm] Sitting 02 Sat by Pulse Oximetry 99 Oxygen Delivery Method Room Air Room Air Medical Decision Narrative: 54-year-old male presents emergency department need of medication refill I discussed patient case with attending physician Dr. Huber Will refill patient's medication of enalapril 10 mg p.o. daily for his hypertension, and will refill his acyclovir cream genital herpes, patient voiced understanding that he will need to have PCP follow-up, strict return precaution given. Patient voiced understanding and agreement with current discharge plan/treatment plan. I was consulted by the [facility], and we discussed the complexity of the problems being addressed. I approved the treatment and management plan for this patient's care in the Emergency Department, thus performing a substantive portion of the medical decision making. Aleksey Huber MD Critical Care <SERVANDO Carrion - Last Filed: 11/19/24 13:34> Critical Care Time Critical Care Time: No
[2024-11-19 13:33] VITALS: BP 119/83; PULSE 89; RESP 16; TEMP 36.7; O2SAT 99; BMI 21.7
[2024-11-19 13:40] VITALS: BP 124/78; PULSE 80; RESP 20; TEMP 36.8; O2SAT 98
== END 2024-11-19 13:41 | disposition home or self-care (01) ==
PROVIDERS: Emergency Provider Emergency Medicine
DX: Z76.0 Encounter for issue of repeat prescription (principal); I10 Essential (primary) hypertension; F17.210 Nicotine dependence, cigarettes, uncomplicated
CPT/HCPCS: 99281

== ENCOUNTER 2024-12-30 22:11 | Emergency (ER) | payer SELFPAY ==
--- OUTSIDE RECORDS SUMMARY | 2024-12-30 22:20 | XMS_ITS | Clinical Summary ---
Author Organization [facility] [employer] Address [address] [place] [address] Care Team Providers Care Paper Tester Name Role Phone [facility], [facility]Doc Primary Care Provider Allergies Active Allergy Reactions Criticality Noted Date Comments Iodine Itching 03/30/2024 Medications enalapril (VASOTEC) 10 MG tablet Take 1 tablet (10 mg total) by mouth daily. 30 tablet 08/15/2024 Active Social History Tobacco Use Types Packs/Day Years Used Date Smoking Tobacco: Never Smokeless Tobacco: Never Tobacco Cessation:Counseling Given: Not Answered Interpersonal Safety Answer Date Record ed Family or friends hurt you Not on file 10/22 Family or friends insult you Not on file Family or friends threaten you Not on file 0 10/23/2023 Family or friends scream or curse at you Not on file 10/23/2023 Family and Community Support Answer Denis e Recorded Help with Day to Day Activities Not on file 10/23/2023 Feeling Lonely or Isolated Not on file 10/22 Educational Attainment Answer Date Lázaro rded Speak language other than Polish at home Not on file 10/23/2023 Want help with school or training Not on file 10/23/2023 Depression Answer Date Recorded PHQ-2 Risk Not on file 10/23/2023 Disabilities Answer Date Recorded Difficulty concentrating Not on file 024 Difficulty doing errands alone Not on file 0 10/23/2023 Substance Use Answer Date Recorded Used prescription meds for non-medical reasons N ot on file 10/23/2023 Used illegal drugs past 12 months Not on file 10/23/2023 Sex and Gender Information Value Date Recorded Sex Assigned at Not on file Legal Sex Male 5:27 PM CDT Gender Identity Not on file Sexual Orientation Not on file Last Filed Vital Signs Vital Sign Reading Time Taken Comments Blood Pressure 138/85 09/20/2024 6:56 PM EDT Pulse 96 09/20/2024 6:56 PM EDT Temperature 36.7 C (98 F) 09/20/2024 6:56 PM EDT Respiratory Rate 18 09/20/2024 6:56 PM EDT Oxygen Saturation 95% 09/20/2024 6:56 PM EDT Inhaled Oxygen Concentration - - Weight 60.8 kg (134 lb) 09/20/2024 6:56 PM EDT Height 152.4 cm (5') 09/20/2024 6:56 PM EDT Body Mass Index 26.17 09/20/2024 6:56 PM EDT Plan of Treatment Health Maintenance Due Date Last Done Comments CT Colonography 1970 Colonoscopy 1970 Colorectal Cancer Screening 1970 FOBT/FIT 1970 Fit-DNA (Cologuard) 1970 Sigmoidoscopy 1970 Depression Screening (12+) 1982 Hepatitis C Screening 1988 DTAP/TDAP/TD VACCINES (1 - Tdap) 1989 Lipid Panel 2005 Pneumococcal 50+ years (1 of 1 - PCV) 2020 Shingles Vaccine (Zoster) (1 of 2) 2020 COVID-19 VACCINE (1 - season) 2024 Influenza Vaccine (Season Ended) 2025 Tobacco Cessation Counseling and Screening (12+) 09/2009/20/2024 HIV Screening Completed 02/26/2024 Procedures Procedure Name Priority Date/Time Associated Diagnosis Comments HIV 1/2 AG/AB COMBO STAT 02/26/2024 8 :19 PM EDT from Last 3 Months or Most Recently Relevant to Health Maintenance Results * HIV 1/2 AG/AB Combo (02/26/2024 8:19 PM EDT) HIV-1 P24 Antigen Nonreactive Nonreactive 02/26/2024 9:36 PM EDT [facility] Comment: The Combo HIV procedure is a fourth generation HIV test which detects BOTH p24 antigen AND HIV antibodies to HIV virus types 0, 1, and 2. A reactive result does not distinguish between the antigen or the antibody and does not specify which antibody is present. Additional testing is required to differentiate the component causing the reactive result. Biotin supplements can cause clinically significant incorrect lab results. The FDA has seen an increase in the number of adverse events related to biotin interference with lab tests. Blood Venipuncture / Unknown 02/26/2024 8:19 PM EDT 02/26/2024 8:20 PM EDT Zaynab Hamm DO LAB BLOOD ORDERABLES Final Resu lt [facility] [address] [phone] from Last 3 Months or Most Recently Relevant to Health Maintenance Insurance [employer] Member Subscriber Plan / Payer (Ef fective 2024-2025) Name:Karl Downs Relation to Subscriber:Self Name:Karl Downs Payer ID:Not on file Group ID:Not on file Type:Not on file Address: [place] [phone] Care Teams Paper Tester Relationship Specialty Start Date End Date [facility] Connection, [facility]Doc [facility] [place] [address] PCP - General 09/05/24
--- OUTSIDE RECORDS SUMMARY | 2024-12-30 22:20 | XMS_ITS | Patient Health Record ---
Author Organization [facility] Address [address] [place], [place] [id number] Care Team Providers Care Slitter And Rewinder Name Role Phone ROLA WHITT Primary Care Provider [phone] Allergies Allergen (clinical drug ingredient) Drug/Non Drug Allergy documented on EMR Reaction Allergy Type Onset Date Status Iodine rash Drug Allergy Active Reason For Referral No Information Medications Medication SIG (Take, Route, Frequency, Duration) Notes Start Date End Date Status metFORMIN HCl 500 MG 1 tablet with a dorothy l Orally Once a day; Duration: 30 days Not-Taking Acyclovir 400 MG 1 tablet Orally Twic e a day; Duration: 10 days 11/12/2022 Not-Takin g Acyclovir 5 % 1 application every 3 hours Externally Six times a day; Duration: 10 days 11/12/2022 Active Pravastatin Sodium 20 MG TOME ARETHA TABLET A TODOS LOS SOSA FOR 30 DAYS; Duration: 90 days Active Enalapril Maleate 20 MG 1 tablet Orally Once a day; Duration: 90 days Active Social History Tobacco Use: Social History Observation Description Date Details (start date - stop date) Current Smoker NA - NA Sexual Hx: Question Answer Notes Had sex in the last 12 months (vaginal, oral, or anal)? Yes with Women only Use protection? No Have you ever had an STD? No Tobacco Use/Smoking: Question Answer Notes Are you a current smoker How often do you smoke? every day How many cigarettes do you smoke per day? 21-30 How soon after you wake up do you smoke? 31-60 m in AUDIT-C (Standard) Question Answer Notes Did you have a drink containing alcohol in the p ast year? No Points 0 Interpretation Negative Tobacco Control (Standard) Question Answer Notes Tobacco use: Current smoker How often do you smoke cigarettes? Every day How many cigarettes a day do you smoke? 6-10 Problems Problem Type SNOMED Code ICD Code Onset Dates Problem Status W/U Status Risk Notes Problem Essential hypertension (71926582) Essential hypertension (I10) Active confirmed Problem Low libido (3437729) Low libido (R68.82) Active confirmed Problem Current smoker (14018045) Current smoker (F17.200) Active confirmed Problem Vitamin D deficiency (84693999) Vitamin D deficiency, unspecified (E55.9) Active confirmed Problem Mixed hyperlipidemia (906061519) Mixed hyperlipidemia (E78.2) Active confirmed Problem Genital herpes simplex (18490985) Herpes genitalis in men (A60.02) Active confirmed Plan Of Treatment No Information Insurance Providers Payer Name Payer Address Payer Phone Subscriber Number Group Number Insured Name Patient Relationship to Insured Coverage Start Date Coverage End Date GRAD[employer] FROM [facility] [address] [place] [address] [id number] [employer]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 02/2023
--- OUTSIDE RECORDS SUMMARY | 2024-12-30 22:20 | XMS_ITS | Referral Summary ---
Author Organization [facility] Address [address] [place] [address] Care Team Providers Care Merchandise For Resale Purchasing Agent Name Role Phone [facility], [facility] Primary Care Provider Allergies Active [...] Date Lázaro rded Speak language other than Yakut at home Not on file 10/23/2023 Want [...] 09/20/2024 6:56 PM EDT Plan of Treatment Not on file Procedures Procedure Name Priority Date/Time Associated Diagnosis Comments HIV 1/2 AG/AB COMBO STAT 02/26/2024 8 :19 PM EDT from Last 3 Months or Most Recently Relevant to Health Maintenance Results * HIV 1/2 AG/AB Combo (02/26/2024 8:19 PM EDT) HIV-1 P24 Antigen Nonreactive Nonreactive 02/26/2024 9:36 PM EDT [facility] Comment: The Combo HIV procedure is [...] DO LAB BLOOD ORDERABLES Final Resu lt Performing Organization Address City/State/[facility] Co de Phone Number [facility] [address] [place] [address], [facility] [phone] from Last 3 Months or Most Recently Relevant to Health Maintenance Insurance [employer] Care Teams Merchandise For Resale Purchasing Agent Relationship Specialty Start Date End Date [facility], [facility] [place] [address] PCP - General 09/05/24
[2024-12-30 22:24] VITALS: BP 131/90; PULSE 94; RESP 16; TEMP 36.9; O2SAT 98; BMI 21.7
[2024-12-30 22:38] VITALS: PULSE 95; O2SAT 98
[2024-12-30 22:45] VITALS: PULSE 95; O2SAT 96
--- NOTE | 2024-12-30 22:45 | CT_ITS ---
PROCEDURE INFORMATION: Exam: CT Abdomen And Pelvis Without Contrast Exam date and time: 12/30/2024 10:52 PM Age: 54 years old Clinical indication: Abdominal pain; Additional info: Gen abd pain, yellow stools, nausea TECHNIQUE: Imaging protocol: Computed tomography of the abdomen and pelvis without contrast. Radiation optimization: All CT scans at this facility use at least one of these dose optimization techniques: automated exposure control; mA and/or kV adjustment per patient size (includes targeted exams where dose is matched to clinical indication); or iterative reconstruction. COMPARISON: CR XR CHEST PORTABLE 11/10/2024 6:06 PM FINDINGS: Lungs: Centrilobular emphysema. Liver: Hepatic granulomas. Gallbladder and biliary ducts: No calcified stones. No ductal dilation. Pancreas: Normal. No ductal dilation. Spleen: Splenic granulomas. Adrenal glands: Unremarkable. Kidneys and ureters: Left interpolar simple cortical renal cyst. No hydronephrosis. Stomach and bowel: Colonic diverticulosis without diverticulitis. Moderate stool burden may be secondary to constipation. No mechanical bowel obstruction. Appendix: No evidence of appendicitis. Intraperitoneal space: No free air. No fluid collection. Vasculature: Unremarkable. Lymph nodes: No enlarged lymph nodes. Urinary bladder: Unremarkable as visualized. Reproductive: Unremarkable as visualized. Bones/joints: Mild multilevel spondylosis. Soft tissues: Unremarkable. IMPRESSION: 1. No definite acute abdominopelvic abnormality. 2. Moderate stool burden may be secondary to constipation. COMMENTS: Consistent with the [place] [employer]'s Incidental Findings Committee white paper (J Am Tiffanie Radiol 2018): Any incidental renal lesion less than 1 cm or classified as too small to characterize, or any incidental cystic renal lesion characterized as simple-appearing, is likely benign. No follow-up imaging is recommended for these lesions per consensus recommendations based on imaging criteria.
[2024-12-30 22:49] LABS: Basophils # 0.1 K/mm3 (0-0.2); Basophils % 0.4 % (0.1-2.0); Eosinophils # 0.5 Kmm3 (0.0-0.4); Eosinophils % 3.6 % (0.1-12.0); Hematocrit 49.2 % (42.0-52.0); Hemoglobin 16.6 g/dL (14.1-18.0); Immature Granulocytes # 0.05 10^3uL; Immature Granulocytes % 0.4 %; Lymphocytes # 5.2 K/mm3 (0.7-4.5); Lymphocytes % 40.7 % (10-50); Mean Corpuscular HGB Conc 33.7 g/dL (31.8-35.4); Mean Corpuscular Hemoglobin 29.1 pg (27.0-31.2); Mean Corpuscular Volume 86.3 fl (80-94); Monocytes % 8.1 % (1.7-9.3); Neutrophils % 46.8 % (37.0-80.0); Nucleated Red Blood Cells # 0 10^3/uL; Nucleated Red Blood Cells % 0 %; Platelet Count 288 K/mm3 (142-424); Red Cell Distribution Width-SD 40.3 fL; White Blood Count 12.9 K/mm3 (4.8-10.8)
[2024-12-30 22:53] LABS: MANUAL DIFFERENTIAL MANUAL DIFFERENTIAL (MANUAL DIFF)
[2024-12-30] MEDS: LACTATED RINGERS 1000ML 1,000 ML 999 ML IV (22:55)
[2024-12-30 22:56] LABS: Alanine Aminotransferase 25 U/L (12-78); Albumin Level 4.4 g/dl (3.5-5.0); Albumin/Globulin Ratio 1.5 (1.1-1.8); Alkaline Phosphatase 87 U/L (38-126); Anion Gap 11.9 mEq/L (5-15); Aspartate Amino Transferase 28 U/L (17-59); Bilirubin,Total 0.9 mg/dl (0.2-1.3); Blood Urea Nitrogen 12 mg/dl (9-20); Calcium 9.3 mg/dl (8.4-10.2); Carbon Dioxide 29 mmol/L (22.0-30.0); Chloride 101 mmol/L (98-107); Creatinine Clearance Estimated 104 mL/min (50-200); Estimated Glomerular Filt Rate 118 ml/min (>60); GFR (African American) 142 ML/MIN (>60); Glucose 103 mg/dl (74-100); Lipase 305 U/L (23-300); Potassium 3.9 mmoL/L (3.5-5.1); Sodium 138 mmol/L (136-145); Total Protein,Serum 7.4 g/dl (6.3-8.2)
[2024-12-30] MEDS: PANTOPRAZOLE 40MG VIAL 40 MG IV (22:56)
[2024-12-30 23:04] VITALS: BP 137/94; PULSE 91; RESP 13; O2SAT 98
--- NOTE | 2024-12-30 23:28 | HMH.EDGENADL ---
Discharge Plan Disposition Patient Disposition: Home, Self-Care Prescriptions Prescriptions: No Action metoprolol succinate 25 mg tablet extended release 24 hr 25 mg PO DAILY Qty: 30 0RF amoxicillin-pot clavulanate 875-125 mg tablet 1 tab PO BID Qty: 20 0RF enalapril maleate 10 mg tablet 10 mg PO DAILY Patient Comments: TAKE 1 TABLET BY MOUTH EVERY DAY enalapril maleate 10 mg tablet 10 mg PO DAILY Qty: 60 1RF acyclovir 5 % cream 1 applic topical ONCE Qty: 5 1RF Referrals Follow up/Referrals: Provider,Referral, MD [Primary Care Provider, Medical] - See instructions Activity Restrictions/Add. Instructions Additional Instructions/Restrictions: There is a fair amount of stool within the colon. There is some fluid within the small bowel. No other significant issues noted on CT scan. You could be developing a stomach bug/GI infection. Your bilirubin was normal. Your lipase was at the upper limit of normal. We will call you if your stool sample results return abnormal. If they are normal, you will not receive a call. Clinical Impressions Clinical Impression: Abdominal pain Instructions Patient Instructions: DI for Acute Abdominal Pain Print Language Print Language: Belarusian Discharge ED Provider: Deacon Justice General Adult HPI <Lachelle Fletcher DO - Last Filed: 12/30/24 23:31> General Chief complaint: Abdominal Pain Stated complaint: Stomach pain,nausea,pee is very yellow Time Seen by Provider: 12/30/24 22:31 Mode of Arrival: Family Vehicle Source of Information: Patient Description of Symptoms (Recalled from ER Triage Doc. by RN): Abdominal Pain Pt presents to the ED with c/o abd pain X 3 days. Pt rpeorts that his BMs are yellow and he is concerned for pancreatitis. Pt reports hx of bowel perf and gastritis. Pt also reports that he is dizzy in the mornings. History of Present Illness HPI narrative: This patient is a 54-year-old male with a history of hypertension and prior perforated stomach ulcer requiring exploratory laparotomy presenting to the emergency department for evaluation with concern for epigastric and left lower quadrant abdominal pain that is intermittent over the last several days. He also notes that his stools are very bright yellow and he is very concerned for pancreatitis. He notes he is having more frequent stools as of late, but would not necessarily states diarrhea. He denies any melena or hematochezia. He also reports nausea but denies any vomiting. He states that he feels very lightheaded in the mornings and is not sure if this is related. No chest pain, shortness of breath, urinary symptoms, or other concerns. Related Data Home Medications ?Medication ?Instructions ?Recorded ?Confirmed enalapril maleate 10 mg tablet 10 mg PO DAILY 11/10/24 11/10/24 Previous Rx's ?Medication ?Instructions ?Recorded amoxicillin 875 mg-potassium 1 tab PO BID #20 tabs 08/03/24 clavulanate 125 mg tablet metoprolol succinate 25 mg 25 mg PO DAILY #30 tabs 08/03/24 tablet,extended release 24 hr acyclovir 5 % topical cream 1 applic topical ONCE #5 grams 11/19/24 enalapril maleate 10 mg tablet 10 mg PO DAILY #60 tabs 11/19/24 Allergies Allergy/AdvReac Type Severity Reaction Status Date / Time iodine Allergy Anaphylaxis Verified 12/30/24 22:32 PFS <Lachelle Fletcher DO - Last Filed: 12/30/24 23:31> [facility] Disclaimer: The information contained in this section may have been updated after the patient was seen, as this information can be updated by other users. Social History Smoking Status: Current every day smoker alcohol intake: never current occupational status: employed Travel in the last 8 weeks?: None Have you lived/traveled outside US in past 30 days?: No Contact w/someone who lives/traveled outside US past 30 days?: No Exposure to someone with infectious disease in past 14 days?: No Do you have a fever (greater than 100.4 F or 38 C)?: No Have you tested positive for COVID-19?: No Exposed to someone with COVID-19 in past 14 days?: No Do you have a sore throat?: No Do you have a cough?: No Do you have any weakness?: No Do you have any diarrhea?: No Are you experiencing any unusual bleeding?: No Do you have any muscle aches/pain?: No Do you have any abdominal pain?: Yes Are you experiencing loss of taste or smell?: No <Lachelle Fletcher DO - Last Filed: 12/30/24 23:31> ROS Obtained: Yes All systems reviewed & no additional complaints except as documented Physical Exam <Lachelle Fletcher DO - Last Filed: 12/30/24 23:31> General General appearance: alert and in no apparent distress Head Head exam: atraumatic and normocephalic Eye Eye exam: Present normal appearance, PERRL and EOMI ENT ENT exam: Present normal exam, normal oropharynx, mucous membranes moist and normal external ear exam Neck Neck exam: Present normal inspection, full ROM and trachea midline; Absent tenderness Chest Chest inspection: Present normal inspection and symmetric chest wall rise; Absent tenderness Respiratory Respiratory exam: Present normal lung sounds bilaterally; Absent respiratory distress, wheezes, stridor or accessory muscle use Cardiovascular Cardiovascular exam: Present regular rate and normal rhythm Abdominal Exam Abdominal exam: Present soft; Absent distention, tenderness or guarding Extremities Exam Extremities exam: Present normal inspection, full ROM and normal capillary refill; Absent tenderness or edema Back Exam Back exam: Present normal inspection and full ROM; Absent tenderness Neurological Exam Neurological exam: Present alert, oriented X3, CN II-XII intact and normal gait; Absent motor sensory deficit Psychiatric Psychiatric exam: Present normal affect and normal mood Skin Skin exam: Present warm and dry Medical Decision Making <Lachelle Fletcher DO - Last Filed: 12/30/24 23:31> Medical Records Medical records reviewed: Yes I reviewed the patient's medical records. Screening: Per USPSTF and CDC recommendations, given the prevalence of disease in our region, it is our hospital?s policy to screen for HIV and viral Hepatitis for all patients aged 18 and over and those with ongoing risk factors. Dionicio Inquiry Pt receiving controlled substance: No Vital Signs: 12/30/24 22:24 12/30/24 22:38 12/30/24 22:45 Temperature 98.4 F Temperature Source Temporal Artery Scan Pulse Rate 95 H 95 H Pulse Rate [Left] 94 H Respiratory Rate 16 Blood Pressure Blood Pressure [Right Arm] 131/90 Blood Pressure Mean Blood Pressure Mean [Right Arm] 103 Blood Pressure Source Blood Pressure Source [Right Arm] Automatic Cuff Blood Pressure Position Blood Pressure Position [Right Arm] Sitting 02 Sat by Pulse Oximetry 98 98 96 Oxygen Delivery Method Room Air 12/30/24 23:04 12/30/24 23:30 12/31/24 00:00 Temperature Temperature Source Pulse Rate 91 H 95 H 88 Pulse Rate [Left] Respiratory Rate 13 13 17 Blood Pressure 137/94 H 120/82 113/79 Blood Pressure [Right Arm] Blood Pressure Mean 109 94 84 Blood Pressure Mean [Right Arm] Blood Pressure Source Blood Pressure Source [Right Arm] Blood Pressure Position Blood Pressure Position [Right Arm] 02 Sat by Pulse Oximetry 98 97 97 Oxygen Delivery Method 12/31/24 00:30 12/31/24 00:45 Temperature 98.4 F Temperature Source Oral Pulse Rate 83 83 Pulse Rate [Left] Respiratory Rate 16 16 Blood Pressure 118/68 118/68 Blood Pressure [Right Arm] Blood Pressure Mean 74 Blood Pressure Mean [Right Arm] Blood Pressure Source Automatic Cuff Blood Pressure Source [Right Arm] Blood Pressure Position Sitting Blood Pressure Position [Right Arm] 02 Sat by Pulse Oximetry 97 Oxygen Delivery Method Room Air Lab Data Lab results reviewed: Yes I reviewed the patient's lab results. Lab Results 12/30/24 22:23: WBC 12.9 H, RBC 5.70, Hgb 16.6, Hct 49.2, MCV 86.3, MCH 29.1, MCHC 33.7, RDW 13.0, Plt Count 288, MPV 9.0, Neut % (Auto) 46.8, Lymph % (Auto) 40.7, [place] % (Auto) 8.1, Eos % (Auto) 3.6, Baso % (Auto) 0.4, Neut # (Auto) 6.0, Lymph # (Auto) 5.2 H, [place] # (Auto) 1.0, Eos # (Auto) 0.5 H, Baso # (Auto) 0.1, Total Counted 100, Neutrophils % (Manual) 46, Lymphocytes % (Manual) 44, Monocytes % (Manual) 5, Eosinophils % (Manual) 5 H, Platelet Estimate Normal, RBC Morphology Normal, Sodium 138, Potassium 3.9, Chloride 101, Carbon Dioxide 29, Anion Gap 11.9, BUN 12, Creatinine 0.70, Estimated Creat Clear 104, Estimated GFR 118, Est GFR ( Amer) 142, Glucose 103 H, Calcium 9.3, Total Bilirubin 0.9, AST 28, ALT 25, Alkaline Phosphatase 87, Total Protein 7.4, Albumin 4.4, Globulin 3.0, Albumin/Globulin Ratio 1.5, Lipase 305 H, HCV Ab CORA w/Rflx PCR Qn Negative, HIV Ag/Ab Combo Qual Negative 12/30/24 23:59: Urine Color Yellow, Urine Appearance Clear, Urine pH 6.5, Ur Specific Kevil <= 1.005, Urine Protein Negative, Urine Glucose (UA) Negative, Urine Ketones Negative, Urine Blood Negative, Urine Nitrate Negative, Urine Bilirubin Negative, Urine Urobilinogen 0.2, Ur Leukocyte Esterase Negative, Urine WBC Occasional, Ur Squamous Epith Cells Occasional, Urine Bacteria Trace 12/30/24 22:23 12/30/24 22:23 Orders (Tests/Meds): ED MEDICATIONS Discontinued Medications Generic Name Dose Route Start Last Admin Trade Name Freq PRN Reason Stop Dose Admin Lactated Ringer's 1,000 mls @ 999 mls/hr 12/30/24 22:45 12/30/24 22:55 Lactated Ringer's 1000 Ml Bag IV 12/30/24 23:45 999 mls/hr .Q1H1M ONE Administration Ondansetron HCl 4 mg 12/30/24 22:45 12/30/24 23:22 Ondansetron 4mg/2ml Vial IV 12/30/24 22:46 Not Given ONCE ONE Pantoprazole Sodium 40 mg 12/30/24 22:45 12/30/24 22:56 Pantoprazole 40mg Vial IV 12/30/24 22:46 40 mg ONCE ONE Administration Sodium Chloride 10 ml 12/30/24 22:45 Sodium Chloride 0.9% 10ml Vial IV 01/29/25 22:44 NEEDED PRN dilute protonix ORDERS Category Date Time Status CT abdomen pelvis wo con Stat Cat Scan 12/30/24 22:45 Completed Complete Blood Count Auto Diff Stat Lab 12/30/24 22:23 Completed Comprehensive Metabolic Panel Stat Lab 12/30/24 22:23 Completed Diarrhea 23 Panel, PCR Stat Lab 12/30/24 23:59 Received HIV Combo Stat Lab 12/30/24 22:23 Completed Hepatitis C Ab Qual. W/ RFX Stat Lab 12/30/24 22:23 Completed Lipase Stat Lab 12/30/24 22:23 Completed UA [Urinalysis and Microscopic] Stat Lab 12/30/24 23:59 Completed Medical Decision Narrative: In summary, this patient is a 54-year-old male presenting to the Emergency Department for evaluation of epigastric and left lower quadrant abdominal pain, yellow stools, nausea, lightheadedness in the mornings for the last several days. Differential diagnoses considered include but are not limited to infectious gastroenteritis, infectious colitis, pancreatitis, cholecystitis, cholangitis, diverticulitis. Ruling out the most morbid conditions drove assessment. It should be noted patient's history includes peptic ulcer disease and hypertension which may not be at goal therapy. This complicates all aspects of care by increasing patient's risk for morbidity. On exam, the patient is well-appearing. He is sitting upright in no acute distress and has benign abdominal exam. Vitals are reassuring on cardiac telemetry. Workup included CBC, CMP, lipase, urinalysis, diarrhea panel, CT abdomen pelvis without IV contrast given contrast allergy. He was given a bolus of IV fluids as well as IV Zofran and pantoprazole for symptomatic improvement. Labs obtained demonstrated very mild leukocytosis with normal hemoglobin. Chemistry demonstrates normal liver enzymes, normal bilirubin. Lipase is right at the upper limits of normal. Kidney function is within normal limits. CT imaging pending at time of signout to oncoming provider, Dr. Justice. <Deacon Justice MD - Last Filed: 12/31/24 01:24> Vital Signs: 12/30/24 22:24 12/30/24 22:38 12/30/24 22:45 Temperature 98.4 F Temperature Source Temporal Artery Scan Pulse Rate 95 H 95 H Pulse Rate [Left] 94 H Respiratory Rate 16 Blood Pressure Blood Pressure [Right Arm] 131/90 Blood Pressure Mean Blood Pressure Mean [Right Arm] 103 Blood Pressure Source Blood Pressure Source [Right Arm] Automatic Cuff Blood Pressure Position Blood Pressure Position [Right Arm] Sitting 02 Sat by Pulse Oximetry 98 98 96 Oxygen Delivery Method Room Air 12/30/24 23:04 12/30/24 23:30 12/31/24 00:00 Temperature Temperature Source Pulse Rate 91 H 95 H 88 Pulse Rate [Left] Respiratory Rate 13 13 17 Blood Pressure 137/94 H 120/82 113/79 Blood Pressure [Right Arm] Blood Pressure Mean 109 94 84 Blood Pressure Mean [Right Arm] Blood Pressure Source Blood Pressure Source [Right Arm] Blood Pressure Position Blood Pressure Position [Right Arm] 02 Sat by Pulse Oximetry 98 97 97 Oxygen Delivery Method 12/31/24 00:30 12/31/24 00:45 Temperature 98.4 F Temperature Source Oral Pulse Rate 83 83 Pulse Rate [Left] Respiratory Rate 16 16 Blood Pressure 118/68 118/68 Blood Pressure [Right Arm] Blood Pressure Mean 74 Blood Pressure Mean [Right Arm] Blood Pressure Source Automatic Cuff Blood Pressure Source [Right Arm] Blood Pressure Position Sitting Blood Pressure Position [Right Arm] 02 Sat by Pulse Oximetry 97 Oxygen Delivery Method Room Air Lab Data Lab Results 12/30/24 22:23: WBC 12.9 H, RBC 5.70, Hgb 16.6, Hct 49.2, MCV 86.3, MCH 29.1, MCHC 33.7, RDW 13.0, Plt Count 288, MPV 9.0, Neut % (Auto) 46.8, Lymph % (Auto) 40.7, [place] % (Auto) 8.1, Eos % (Auto) 3.6, Baso % (Auto) 0.4, Neut # (Auto) 6.0, Lymph # (Auto) 5.2 H, [place] # (Auto) 1.0, Eos # (Auto) 0.5 H, Baso # (Auto) 0.1, Total Counted 100, Neutrophils % (Manual) 46, Lymphocytes % (Manual) 44, Monocytes % (Manual) 5, Eosinophils % (Manual) 5 H, Platelet Estimate Normal, RBC Morphology Normal, Sodium 138, Potassium 3.9, Chloride 101, Carbon Dioxide 29, Anion Gap 11.9, BUN 12, Creatinine 0.70, Estimated Creat Clear 104, Estimated GFR 118, Est GFR ( Amer) 142, Glucose 103 H, Calcium 9.3, Total Bilirubin 0.9, AST 28, ALT 25, Alkaline Phosphatase 87, Total Protein 7.4, Albumin 4.4, Globulin 3.0, Albumin/Globulin Ratio 1.5, Lipase 305 H, HCV Ab CORA w/Rflx PCR Qn Negative, HIV Ag/Ab Combo Qual Negative 12/30/24 23:59: Urine Color Yellow, Urine Appearance Clear, Urine pH 6.5, Ur Specific K[place] <= 1.005, Urine Protein Negative, Urine Glucose (UA) Negative, Urine Ketones Negative, Urine Blood Negative, Urine Nitrate Negative, Urine Bilirubin Negative, Urine Urobilinogen 0.2, Ur Leukocyte Esterase Negative, Urine WBC Occasional, Ur Squamous Epith Cells Occasional, Urine Bacteria Trace Orders (Tests/Meds): ED MEDICATIONS Discontinued Medications Generic Name Dose Route Start Last Admin Trade Name Freq PRN Reason Stop Dose Admin Lactated Ringer's 1,000 mls @ 999 mls/hr 12/30/24 22:45 12/30/24 22:55 Lactated Ringer's 1000 Ml Bag IV 12/30/24 23:45 999 mls/hr .Q1H1M ONE Administration Ondansetron HCl 4 mg 12/30/24 22:45 12/30/24 23:22 Ondansetron 4mg/2ml Vial IV 12/30/24 22:46 Not Given ONCE ONE Pantoprazole Sodium 40 mg 12/30/24 22:45 12/30/24 22:56 Pantoprazole 40mg Vial IV 12/30/24 22:46 40 mg ONCE ONE Administration Sodium Chloride 10 ml 12/30/24 22:45 Sodium Chloride 0.9% 10ml Vial IV 01/29/25 22:44 NEEDED PRN dilute protonix ORDERS Category Date Time Status CT abdomen pelvis wo con Stat Cat Scan 12/30/24 22:45 Completed Complete Blood Count Auto Diff Stat Lab 12/30/24 22:23 Completed Comprehensive Metabolic Panel Stat Lab 12/30/24 22:23 Completed Diarrhea 23 Panel, PCR Stat Lab 12/30/24 23:59 Received HIV Combo Stat Lab 12/30/24 22:23 Completed Hepatitis C Ab Qual. W/ RFX Stat Lab 12/30/24 22:23 Completed Lipase Stat Lab 12/30/24 22:23 Completed UA [Urinalysis and Microscopic] Stat Lab 12/30/24 23:59 Completed Medical Decision Narrative: In summary, this patient is a 54-year-old male presenting to the Emergency Department for evaluation of epigastric and left lower quadrant abdominal pain, yellow stools, nausea, lightheadedness in the mornings for the last several days. Differential diagnoses considered include but are not limited to infectious gastroenteritis, infectious colitis, pancreatitis, cholecystitis, cholangitis, diverticulitis. Ruling out the most morbid conditions drove assessment. It should be noted patient's history includes peptic ulcer disease and hypertension which may not be at goal therapy. This complicates all aspects of care by increasing patient's risk for morbidity. On exam, the patient is well-appearing. He is sitting upright in no acute distress and has benign abdominal exam. Vitals are reassuring on cardiac telemetry. Workup included CBC, CMP, lipase, urinalysis, diarrhea panel, CT abdomen pelvis without IV contrast given contrast allergy. He was given a bolus of IV fluids as well as IV Zofran and pantoprazole for symptomatic improvement. Labs obtained demonstrated very mild leukocytosis with normal hemoglobin. Chemistry demonstrates normal liver enzymes, normal bilirubin. Lipase is right at the upper limits of normal. Kidney function is within normal limits. CT imaging pending at time of signout to oncoming provider, Dr. Justice. Reshma NGUYEN: I assumed care of the patient at the time of handoff from the prior provider. On reassessment patient leatha hemodynamically stable. CT imaging was independently interpreted by me, moderate pancolonic stool burden, fluid noted within the small bowel. Patient may have enteritis, though lack of contrast limits interpretation. No evidence of emergent pathology at this time. Interactive discussion was had with patient regarding his presentation. His urine sample returned without evidence of infection. He was discharged with his stool sample pending, we will call if anything returns positive. Critical Care <Lachelle Fletcher, DO - Last Filed: 12/30/24 23:31> Critical Care Time Critical Care Time: No
[2024-12-30 23:30] VITALS: BP 120/82; PULSE 95; RESP 13; O2SAT 97
[2024-12-30 23:30] LABS: Eosinophils % 5 % (0-3); Lymphocytes % 44 % (10-50); Monocytes % 5 % (2-9); Neutrophils % 46 % (42-76); Platelet Estimate Normal; RBC Morphology Normal; Total Cells Counted 100
[2024-12-31] VITALS: BP 113/79; PULSE 88; RESP 17; O2SAT 97
[2024-12-31 00:06] LABS: HIV Combo NEGATIVE (Negative)
[2024-12-31 00:07] LABS: Adenovirus F 40/41, stool Not Detected (NotDetected); Astrovirus Not Detected (NotDetected); Campylobacter Not Detected (NotDetected); Clostridium Difficile A/B, PCR Not Detected (NotDetected); Cryptosporidium Not Detected (NotDetected); Cyclospora Cayetanesis Not Detected (NotDetected); Enteroaggregative E coli Not Detected (NotDetected); Enteropathogenic E coli Not Detected (NotDetected); Enterotoxigenic E coli Not Detected (NotDetected); Giardia lamblia Not Detected (NotDetected); Microscopic, Urine URINE MICROSCOPIC (MICROSCOPIC); Norovirus Not Detected (NotDetected); Plesimonas Shigalloides, PCR Not Detected (NotDetected); Rotavirus A Not Detected (NotDetected); Salmonella, PCR Not Detected (NotDetected); Sapovirus Not Detected (NotDetected); Shiga-like toxin E coli Not Detected (NotDetected); Shigella Enterovasive E coli Not Detected (NotDetected); Vibrio Cholerae Not Detected (NotDetected); Vibrio, PCR Not Detected (NotDetected); Yersinia Entercolitica, PCR Not Detected (NotDetected)
[2024-12-31 00:12] LABS: Appearance,Urine CLEAR (Clear); Bilirubin,Urine Negative (Negative); Blood, Urine Negative (Negative); Color,Urine YELLOW (Yellow); Glucose,Urine (UA) Negative (Negative); Ketones,Urine Negative (Negative); Leukocyte Esterase,Urine Negative (Negative); Nitrate,Urine Negative (Negative); PH,Urine 6.5 (5.0-8.5); Protein,Urine Negative (Negative); Specific Gravity, Urine <= 1.005 (1.005-1.030); Urobilinogen,Urine 0.2 EU/dl (0.2)
[2024-12-31 00:14] LABS: Hepatitis C Ab Qual. W/ RFX NEGATIVE (Negative)
[2024-12-31 00:30] VITALS: BP 118/68; PULSE 83; RESP 16; O2SAT 97
[2024-12-31 00:45] VITALS: BP 118/68; PULSE 83; RESP 16; TEMP 36.9; O2SAT 99
[2024-12-31 00:49] LABS: Bacteria,Urine Trace /lpf; Squamous Epithelial Cell,Urine Occasional #/hpf (0-5); WBC,Urine Occasional #/hpf (0-3)
[2024-12-31 03:49] LABS: Entamoeba histolytica Detected (NotDetected)
--- NOTE | 2024-12-31 06:37 | PC.NURSE ---
Pt was called and educated on bacteria found in his stool sample. Advised pt to pick the prescriptions up today and to take as directed. Also advised to follow up with a PCP.
--- NOTE | 2025-01-04 11:36 | CARE MANAGER ---
Spoke with patient related to the cost of one of the new medications ordered. Patient is self-pay and cannot afford this medicine. There was an application for patient assistance program but patient exceeded the income limits. Dr. Ashley also looked into assistance through and there was none available. This is the only medication only with his Flagyl that he already picked up for the medical condition he has. Alis Esparza spoke with patient as well. Patient also spoke with Dana, financial counselor, but is unable to get health insurance through the marketplace because he is a resident of [place]. Suggested that patient get to [place] to get insurance and be able to cover this medication possibly. Patient here because he travels for work. He will follow up on obtaining insurance.
== END 2024-12-31 00:50 | disposition home or self-care (01) ==
PROVIDERS: Emergency Medicine; Emergency Provider Emergency Medicine
DX: R10.9 Unspecified abdominal pain (principal); R11.0 Nausea; I10 Essential (primary) hypertension; F41.9 Anxiety disorder, unspecified
CPT/HCPCS: 74176; 80053; 81001; 83690; 85007; 85025; 85027; 86803; 87389; 87507; 99285; J2405; J2470; J7120

== ENCOUNTER 2025-01-19 13:19 | Emergency (ER) | payer SELFPAY ==
--- NOTE | 2025-01-19 13:26 | ED_ITS ---
<Statement entered by Leanne Albarran DO - 01/19/25 16:59> I was consulted by the HUMZA, and we discussed the complexity of problems being addressed. I approve the treatment and management plan for this patient's care in the emergency department, thus performing a substantial portion of the medical decision making. Leanne Albarran DO Discharge Plan Disposition Patient Disposition: Home, Self-Care Condition: Good Prescriptions Prescriptions: New clonazepam [Klonopin] 0.5 mg tablet 0.5 mg PO DAILY Qty: 5 0RF No Action metoprolol succinate 25 mg tablet extended release 24 hr 25 mg PO DAILY Qty: 30 0RF amoxicillin-pot clavulanate 875-125 mg tablet 1 tab PO BID Qty: 20 0RF enalapril maleate 10 mg tablet 10 mg PO DAILY Patient Comments: TAKE 1 TABLET BY MOUTH EVERY DAY enalapril maleate 10 mg tablet 10 mg PO DAILY Qty: 60 1RF acyclovir 5 % cream 1 applic topical ONCE Qty: 5 1RF paromomycin 250 mg capsule 750 mg PO TID Qty: 63 0RF Rx Instructions: Begin taking after completing your metronidazole course of antibiotics. metronidazole 500 mg tablet 500 mg PO TID 10 Days Qty: 30 0RF Referrals Follow up/Referrals: Provider,Referral, MD [Primary Care Provider, Medical] - See instructions Activity Restrictions/Add. Instructions Additional Instructions/Restrictions: Please return to the emergency department with any worsening signs or symptoms, please take your medication as prescribed, I recommend that using the laxative medication (MiraLAX) or (Ducolax) as needed for constipation, please follow-up with your family doctor/behavioral health provider in [place] that prescribes your medication for your anxiety disorder. Clinical Impressions Clinical Impression: Anxiety, Encounter for medication refill Print Language Print Language: Trinidadian Discharge ED Provider: Leanne Albarran General Adult HPI General Chief complaint: Anxiety Stated complaint: Anxiety Issues Time Seen by Provider: 01/19/25 13:26 Mode of Arrival: Ambulatory Source of Information: Patient Limitations: No Limitations History of Present Illness HPI narrative: 54-year-old male presents to the emergency department with chief complaint of insomnia and anxiety, patient states that he has been prescribed previous anxiety medication before, he takes clonazepam , he is unsure of the dose but he tells me it is the smallest dose , as needed for breakthrough anxiety, patient tells me he has history of PTSD and anxiety, and that is coming up on the anniversary of his sister's . He admits to difficulty sleeping for the last 2 days, as well as nervousness , he also endorses some constipation, no nausea no vomiting, no fever no chills no chest pain no shortness of breath, no diarrhea no constipation, no urinary symptomatology, no melena no hematochezia no hematemesis or hemoptysis, other past medical history is consistent with hypertension, of note patient was recently seen in the emergency department in December for constipation, found to have moderate colonic stool burden, no bowel obstruction based on laboratory studies and CT imaging. Initial triage vitals notable for tachycardia otherwise unremarkable. Onset (ago): day(s) Related Data Home Medications ?Medication ?Instructions ?Recorded ?Confirmed enalapril maleate 10 mg tablet 10 mg PO DAILY 11/10/24 11/10/24 Previous Rx's ?Medication ?Instructions ?Recorded amoxicillin 875 mg-potassium 1 tab PO BID #20 tabs clavulanate 125 mg tablet metoprolol succinate 25 mg 25 mg PO DAILY #30 tabs tablet,extended release 24 hr acyclovir 5 % topical cream 1 applic topical ONCE #5 g priya 11/19/24 enalapril maleate 10 mg tablet 10 mg PO DAILY #60 tabs 11/19/24 metronidazole 500 mg tablet 500 mg PO TID 10 days #30 tabs 12/31/24 paromomycin 250 mg capsule 750 mg (3 x 250 mg) PO TID #63 caps 12/31/24 clonazepam 0.5 mg tablet (Klonopin) 0.5 mg PO DAILY #5 tabs 01/19/25 Allergies Allergy/AdvReac Type Severity Reaction Status Date / Time iodine Allergy Anaphylaxis Verified 12/30/24 22:32 [facility] Disclaimer: The information contained in this section may have been updated after the patient was seen, as this information can be updated by other users. Social History Smoking Status: Current every day smoker alcohol intake: never current occupational status: employed Travel in the last 8 weeks?: None Have you lived/traveled outside US in past 30 days?: No Contact w/someone who lives/traveled outside US past 30 days?: No Exposure to someone with infectious disease in past 14 days?: No Do you have a fever (greater than 100.4 F or 38 C)?: No Have you tested positive for COVID-19?: No Exposed to someone with COVID-19 in past 14 days?: No Do you have a sore throat?: No Do you have a cough?: No Do you have any weakness?: No Do you have any diarrhea?: No Are you experiencing any unusual bleeding?: No Do you have any muscle aches/pain?: No Do you have any abdominal pain?: No Are you experiencing loss of taste or smell?: No ROS Obtained: Yes All systems reviewed & no additional complaints except as documented Physical Exam General General appearance: alert, in no apparent distress and anxious Head Head exam: atraumatic and normocephalic Eye Eye exam: Present PERRL and EOMI ENT ENT exam: Present mucous membranes moist Neck Neck exam: Present normal inspection Chest Chest inspection: Present normal inspection and symmetric chest wall rise Respiratory Respiratory exam: Present normal lung sounds bilaterally; Absent respiratory distress Cardiovascular Cardiovascular exam: Present regular rate and normal rhythm Abdominal Exam Abdominal exam: Present soft; Absent tenderness, guarding, rebound or rigidity Extremities Exam Extremities exam: Present normal inspection Neurological Exam Neurological exam: Present alert and oriented X3 Psychiatric Psychiatric exam: Present normal affect Skin Skin exam: Present warm and dry Medical Decision Making Medical Records Medical records reviewed: Yes I reviewed the patient's medical records. Screening: Per USPSTF and CDC recommendations, given the prevalence of disease in our region, it is our hospital?s policy to screen for HIV and viral Hepatitis for all patients aged 18 and over and those with ongoing risk factors. Dionicio Inquiry Pt receiving controlled substance: No Dionicio was queried for this patient: No Vital Signs: 01/19/25 13:31 Temperature 99.0 F Temperature Source Oral Pulse Rate [Right Radial] 108 H Respiratory Rate 14 Blood Pressure [Left Arm] 102/69 L Blood Pressure Mean [Left Arm] 80 Blood Pressure Source [Left Arm] Automatic Cuff Blood Pressure Position [Left Arm] Sitting 02 Sat by Pulse Oximetry 97 Oxygen Delivery Method Room Air Medical Decision Narrative: 55-year-old male presents to the emergency department with need of medication refill with chief complaint of anxiety, differential diagnosis include but not limited to encounter for medication refill, panic disorder, panic attack, generalized anxiety disorder. I discussed this patient's case with the attending physician Will prescribe patient short course of 0.5 mg of Klonopin as needed for panic attack/anxiety, patient will need to follow-up with his PCP and other providers in [place], patient voiced understanding and agreement to current treatment plan/discharge plan, in regard to the patient's constipation, patient has no signs or symptoms of a bowel obstruction, abdominal exam is benign, no nausea no vomiting, 2 days of constipation, recommend [id number] laxatives as needed for symptomatically. Patient voiced understanding and agreed with plan/discharge plan. Patient given strict ED return precautions. Critical Care Critical Care Time Critical Care Time: No
--- OUTSIDE RECORDS SUMMARY | 2025-01-19 13:26 | XMS_ITS | Clinical Summary ---
Author Organization [employer] ([place], [place], [place], [place]) Address [address] [place] [address] Care Team Providers Care Ground Crew Linesman Name Role Phone [facility] Connection, [facility] Primary Care Provider Allergies Active Allergy Reactions Criticality Noted Date Comments Iodine Itching 03/30/2024 Medications enalapril (VASOTEC) 10 MG tablet Take 1 tablet (10 mg total) by mouth daily. 30 tablet 08/15/2024 Active Social History Tobacco Use Types Packs/Day Years Used Date Smoking Tobacco: Never Smokeless Tobacco: Never Tobacco Cessation:Counseling Given: Not Answered Family and Community Support Answer Denis e Recorded Help with Day to Day Activities Not on file 10/23/2023 Feeling Lonely or Isolated Not on file 10/22 Educational Attainment Answer Date Lázaro rded Speak language other than Frisian at home Not on file 10/23/2023 Want help with school or training Not on file 10/23/2023 Substance Use Answer Date Recorded Used [...] VACCINE (1 - season) 2024 Influenza Vaccine (#1) 2025 Tobacco Cessation Counseling and Screening (12+) 09/2009/20/2024 HIV Screening Completed 02/26/2024 Procedures Procedure Name Priority Date/Time Associated Diagnosis Comments HIV 1/2 AG/AB COMBO STAT 02/26/2024 8 :19 PM EDT from Last 3 Months or Most Recently Relevant to Health Maintenance Results * HIV 1/2 AG/AB Combo (02/26/2024 8:19 PM EDT) HIV-1 P24 Antigen Nonreactive Nonreactive 02/26/2024 9:36 PM EDT [facility] Comment: The Combo HIV [...] 8:19 PM EDT 02/26/2024 8:20 PM EDT us Zaynab Hamm DO LAB BLOOD ORDERABLES Final Resu lt [facility] [address] [phone] from Last 3 Months or Most Recently Relevant to Health Maintenance Insurance GENERIC COMM[employer]CIAL Care Teams Ground Crew Linesman Relationship Specialty Start Date End Date [facility] Connection, [facility] [place] [address] PCP - General 09/05/24
--- OUTSIDE RECORDS SUMMARY | 2025-01-19 13:26 | XMS_ITS | Referral Summary ---
Author Organization [employer] ([place], [place], [place], [place]) Address [address] [place] [address] Care Team Providers Care Cash Posting Specialist Name Role Phone [facility] Connection, [facility]Doc Primary Care Provider Allergies Active [...] Date Lázaro rded Speak language other than Wolof at home Not on file 10/23/2023 Want [...] Nonreactive Nonreactive 02/26/2024 9:36 PM EDT [facility] Comment: The Combo HIV [...] DO LAB BLOOD ORDERABLES Final Resu lt [facility] [address] [place] [address], [facility] [phone] from Last 3 Months or Most Recently Relevant to Health Maintenance Insurance GENERIC COMMERCIAL Care Teams Cash Posting Specialist Relationship Specialty Start Date End Date [facility] Connection, [facility]Doc [facility] [place] [phone] PCP - General 09/05/24
--- OUTSIDE RECORDS SUMMARY | 2025-01-19 13:26 | XMS_ITS | Patient Health Record ---
Author Organization [facility] Address [address] [place], [place] [id number] Care Team Providers Care Supervisor Home Restoration Service Name Role Phone ROLA WHITT Primary Care Provider Allergies Allergen (clinical drug ingredient) Drug/Non Drug [...] W/U Status Risk Notes Problem Essential hypertension (51876104) Essential hypertension (I10) Active confirmed Problem Low libido (8984189) Low libido (R68.82) Active confirmed Problem Current smoker (45062486) Current smoker (F17.200) Active confirmed Problem Vitamin D deficiency (17898820) Vitamin D deficiency, unspecified (E55.9) Active confirmed Problem Mixed hyperlipidemia (799918595) Mixed hyperlipidemia (E78.2) Active confirmed Problem Genital herpes simplex (03156806) Herpes genitalis in men (A60.02) Active confirmed Plan Of Treatment No Information Insurance Providers Payer Name Payer Address Payer Phone Subscriber Number Group Number Insured Name Patient Relationship to Insured Coverage Start Date Coverage End Date GRADY FROM [facility] [address] [place] [address] [id number] [employer]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 02/2023
[2025-01-19 13:31] VITALS: BP 102/69; PULSE 108; RESP 14; TEMP 37.2; O2SAT 97; BMI 22.2
[2025-01-19 14:34] VITALS: BP 105/70; PULSE 99; RESP 14; TEMP 37.2; O2SAT 100
== END 2025-01-19 14:35 | disposition home or self-care (01) ==
PROVIDERS: Emergency Provider Student in an Organized Health Care Education/Training Program
DX: F41.1 Generalized anxiety disorder (principal); F17.210 Nicotine dependence, cigarettes, uncomplicated; Z76.0 Encounter for issue of repeat prescription
CPT/HCPCS: 99282